=== PATIENT | female | born 1975 | race Caucasian/White ===

== ENCOUNTER → 2018-08-22 | Outpatient (CLI) | payer OTHER ==
--- NOTE | 2018-08-24 17:54 | SLEEPHOME ---
DATE OF PROCEDURE: 08/22/2018 Ordered by: ARBEN Figueroa Diagnostic home sleep testing was performed due to concern for the obstructive sleep apnea syndrome in this patient with excessive somnolence and nonrestorative sleep. For testing, a nocturnal T3 respiratory monitoring device was used. Continuous record was made of pulse, oxygen saturation, airflow, chest, abdominal strain and body position. 9 hours and 59 minutes of data were reviewed. There were 5 hours and 51 minutes marked as time in bed. During the interval marked time in bed, there was 30 respiratory events identified of 10 seconds in duration or greater for a respiratory event index of 5.1. The patient's pulse oximetry probe became dislodged early in the study and therefore pulse rate and oximetry data were limited. Baseline saturation is 95%. One period of desaturations to 81% was seen. IMPRESSION Abnormal home sleep testing with repetitive respiratory events and oxygen desaturations to 31% with a respiratory event index of 5.1 is consistent with the obstructive sleep apnea syndrome. RECOMMENDATIONS The patient should be encouraged to undergo formal sleep evaluation and consider in laboratory pressure titration.
== END ==
LOC: M SLEEP HO 11:10
PROVIDERS: ATTEND Nurse Practitioner Family
DX: R40.0 Somnolence (principal)

== ENCOUNTER → 2019-07-04 | Outpatient (REF) | payer OTHER ==
[2019-07-04 14:26] LABS: BASO # 0.1 10^3/uL (0.0-0.2); EOS # 0.1 10^3/uL (0.0-0.5); EOS % 1.6 % (0.0-3.0); HEMATOCRIT 40.9 % (36.0-47.0); HEMOGLOBIN 13.2 g/dl (12.0-15.5); LYMPH % 32.3 % (24.0-44.0); MEAN CORPUSCULAR HEMOGLOBIN 29.9 pg (27.0-33.0); MEAN CORPUSCULAR HGB CONC 32.3 g/dl (32.0-36.5); MEAN CORPUSCULAR VOLUME 92.7 fl (80.0-96.0); MONO # 0.5 10^3/uL (0.0-0.8); MONO % 8.4 % (0.0-5.0); NEUTROPHILS # 3.6 10^3/uL (1.5-8.5); NEUTROPHILS % 56.5 % (36.0-66.0); PLATELET COUNT, AUTOMATED 408 10^3/uL (150-450); RED BLOOD COUNT 4.41 10^6/uL (4.00-5.40); WHITE BLOOD COUNT 6.3 10^3/uL (4.0-10.0)
[2019-07-04 14:30] LABS: ALBUMIN 3.6 GM/DL (3.2-5.2); ALT/SGPT 23 U/L (12-78); BILIRUBIN,TOTAL 0.1 MG/DL (0.2-1.0); BLOOD UREA NITROGEN 16 MG/DL (7-18); CALCIUM LEVEL 8.8 MG/DL (8.5-10.1); CARBON DIOXIDE LEVEL 26 MEQ/L (21-32); CHLORIDE LEVEL 108 MEQ/L (98-107); CREATININE FOR GFR 0.72 MG/DL (0.55-1.30); GLOMERULAR FILTRATION RATE > 60.0 (>58); GLUCOSE, FASTING 105 MG/DL (70-100); POTASSIUM SERUM 4.3 MEQ/L (3.5-5.1); RHEUMATOID FACTOR QUANT 27.1 IU/ML (<15.0); SODIUM LEVEL 139 MEQ/L (136-145); TOTAL PROTEIN 7.3 GM/DL (6.4-8.2)
[2019-07-04 14:55] LABS: ERYTHROCYTE SEDIMENTATION RATE 10 mm/hr (0-20)
[2019-07-05 11:27] LABS: TOTAL 25(OH) VITAMIN D 28.4 NG/ML (30.0-100.0)
[2019-07-05 14:09] LABS: ANTINUCLEAR ANTIBODIES DIRECT Negative (Negative)
== END ==
LOC: M LABDRAW1 12:21
PROVIDERS: ATTEND Psychiatry & Neurology Neurology
DX: R51 Headache (principal)